=== PATIENT | male | born 1960 | race Caucasian/White ===

== ENCOUNTER 2022-09-14 09:25 | Emergency (ER) | payer MEDICARE, BC ==
[2022-09-14] MEDS ORDERED: Acetaminophen/HYDROcodone 325-5 MG Tab PO ONE (10:25)
[2022-09-14 11:00] VITALS: BP 133/79; PULSE 86
== END 2022-09-14 12:03 | disposition home or self-care (01) ==
LOC: JP.ED 09:25
DX: S22.31XA Fracture of one rib, right side, initial encounter for closed fracture (principal); S42.291A Other displaced fracture of upper end of right humerus, initial encounter for closed fracture; E78.00 Pure hypercholesterolemia, unspecified; I10 Essential (primary) hypertension; Z72.0 Tobacco use; Z79.899 Other long term (current) drug therapy; W19.XXXA Unspecified fall, initial encounter
CPT/HCPCS: 71250; 73030; 99284; A9270